=== PATIENT | male | born 1995 ===

== ENCOUNTER 2022-12-05 01:11 | Emergency (ER) | payer OTHER, BC ==
[2022-12-05] MEDS ORDERED: Propofol 200 MG/20 ML SDV IVPUSH ONE (01:47)
[2022-12-05] MEDS ORDERED: fentaNYL 50 MCG/ML SDV IVPUSH ONE (01:53)
[2022-12-05] MEDS ORDERED: Midazolam 5 MG/ML SDV ONE (02:11)
[2022-12-05] MEDS ORDERED: Midazolam 5 MG/ML SDV IVPUSH ONE (02:16)
== END 2022-12-05 03:10 | disposition home or self-care (01) ==
LOC: MW.ED 01:11
DX: S43.005A Unspecified dislocation of left shoulder joint, initial encounter (principal); X50.9XXA Other and unspecified overexertion or strenuous movements or postures, initial encounter; Y92.89 Other specified places as the place of occurrence of the external cause; Y99.0 Civilian activity done for income or pay
CPT/HCPCS: 23650; 73020; 73030; 99152; 99153; 99283; J2250; J2704; J3010; 99284

== ENCOUNTER 2023-06-23 22:31 | Emergency (ER) | payer BC, OTHER ==
[2023-06-23] MEDS: Ondansetron 4 MG/2 ML SDV IVPUSH ONE (22:48)
[2023-06-23] MEDS: fentaNYL 100 MCG/2 ML SDV IVPUSH ONE (22:48)
[2023-06-23] MEDS: Midazolam 1 MG/ML 2 ML SDV IVPUSH ONE (22:48)
== END 2023-06-24 01:14 | disposition home or self-care (01) ==
LOC: MW.ED 22:31
DX: S43.005A Unspecified dislocation of left shoulder joint, initial encounter (principal); Z75.8 Other problems related to medical facilities and other health care; X58.XXXA Exposure to other specified factors, initial encounter
CPT/HCPCS: 23650; 73030; 96374; 99152; 99283; J2250; J2405; J3010; 99284